=== PATIENT | female | born 1975 | race Caucasian/White ===

== ENCOUNTER 2020-07-11 14:18 | Emergency (ER) | payer MEDICAID ==
[~2020-07-11] VITALS: Ht 167.6 cm; Wt 112.0 kg
[2020-07-11 14:28] VITALS: BP 119/49; Ht 167.6 cm; Wt 112.0 kg
== END 2020-07-11 16:30 | disposition home or self-care (01) ==
LOC: ED 14:18
DX: H53.8 Other visual disturbances (principal); E11.9 Type 2 diabetes mellitus without complications
CPT/HCPCS: 82962